=== PATIENT | female | born 1970 | race Caucasian/White ===

== ENCOUNTER 2019-01-14 14:59 | Emergency (ER) | payer BC ==
[~2019-01-14] VITALS: Ht 165.1 cm; Wt 72.1 kg
[2019-01-14 15:24] VITALS: BP 114/82
--- NOTE | 2019-01-14 16:04 | NUR ---
PT TO ER BED 3
--- NOTE | 2019-01-14 17:12 | NUR ---
Assumed patient care, nursing assessment completed. Seen and evaluated by CHITO EKE completed.
--- NOTE | 2019-01-14 17:17 | NUR ---
Ultrasound at bedside.
[2019-01-14 17:28] VITALS: BP 109/60
--- NOTE | 2019-01-14 17:43 | NUR ---
Dispo and medical decision making, DC home with instructions, right thumb spica splint applied, (+) RECYCLING TECH intact. Patient understanding all instructions, VS WNL. DC home ambulatory.
== END 2019-01-14 17:58 | disposition home or self-care (01) ==
LOC: MED 14:59
DX: M65.4 Radial styloid tenosynovitis [de Quervain] (principal); F17.210 Nicotine dependence, cigarettes, uncomplicated; Z88.6 Allergy status to analgesic agent; Z71.6 Tobacco abuse counseling
CPT/HCPCS: 29125; 73110; 93930; 93971; 99284; Q0092

== ENCOUNTER 2023-01-23 17:08 | Emergency (ER) | payer BC ==
[~2023-01-23] VITALS: Ht 165.1 cm; Wt 80.5 kg
[2023-01-23 17:54] VITALS: BP 165/91
[2023-01-23 19:55] LABS: BASOPHILS # (AUTO) 0.1 K/uL (0.00-0.22); BASOPHILS % (AUTO) 0.7 % (0.0-2.0); EOSINOPHILS # (AUTO) 0.1 K/uL (0-0.4); EOSINOPHILS % (AUTO) 1.2 % (0.0-4.0); HEMATOCRIT 36.3 % (36-48); HEMOGLOBIN 11.9 g/dL (12.0-16.0); LYMPHOCYTES # (AUTO) 1.2 K/uL (2.5-16.5); LYMPHOCYTES % (AUTO) 11.7 % (20.5-51.1); MEAN CORPUSCULAR HEMOGLOBIN 29 pg (27-31); MEAN CORPUSCULAR HGB CONC 33 g/dL (33-37); MEAN CORPUSCULAR VOLUME 89.1 fL (80-94); MONOCYTES # (AUTO) 0.7 K/uL (0.8-1.0); NEUTROPHILS # (AUTO) 7.9 K/uL (1.8-7.7); NEUTROPHILS % (AUTO) 79.4 % (42.2-75.2); PLATELET COUNT (AUTO) 224 K/uL (140-450); RED BLOOD CELL COUNT(AUTO) 4.08 MIL/uL (4.20-5.40); RED CELL DISTRIBUTION WIDTH 15.7 % (11.6-13.7); WHITE BLOOD COUNT (AUTO) 9.9 K/uL (4.8-10.8)
[2023-01-23 20:05] LABS: ANION GAP 13.3 (8-16); CARBON DIOXIDE 25.8 mmol/L (21-32); POTASSIUM 4.1 mmol/L (3.5-5.1)
[2023-01-23 20:11] LABS: ALBUMIN 4.1 g/dL (3.4-5.0); TOTAL BILIRUBIN 0.2 mg/dL (0.0-1.0)
[2023-01-23 22:08] LABS: APPEARANCE,URINE CLEAR (CLEAR); BILIRUBIN,URINE NEGATIVE (NEGATIVE); BLOOD, URINE 3+ (NEGATIVE); COLOR,URINE YELLOW (YELLOW); LEUKOCYTE ESTERASE ,URINE TRACE (NEGATIVE); NITRITE, URINE NEGATIVE (NEGATIVE); PH,URINE 6.5 (5.0-9.0); UGLUCOSE NEGATIVE (NEGATIVE)
[2023-01-23] MEDS ORDERED: ONDA-188 SL (22:09)
[2023-01-23] MEDS ORDERED: TAMS0.4C96 PO (22:09)
[2023-01-23] MEDS ORDERED: HYDR-5080 PO (22:09)
[2023-01-23 22:24] LABS: RBC,URINE 11-20 (MOD) /HPF (0-5)
--- NOTE | 2023-01-23 23:00 | NUR ---
Patient discharged with v/s stable. Written and verbal after care instructions given and explained. Patient alert, oriented and verbalized understanding of instructions. Ambulatory with steady gait. All questions addressed prior to discharge. ID band removed. Patient advised to follow up with PMD. Rx of NORCO, ZOFRAN, FLOMAX given. Patient educated on indication of medication including possible reaction and side effects. Opportunity to ask questions provided and answered.
== END 2023-01-23 23:00 | disposition home or self-care (01) ==
LOC: MED 17:08
DX: N20.0 Calculus of kidney (principal); Z88.5 Allergy status to narcotic agent; Z79.899 Other long term (current) drug therapy; Z90.49 Acquired absence of other specified parts of digestive tract
CPT/HCPCS: 36415; 80053; 81001; 83690; 85025; 87086; 99284